=== PATIENT | female | born 1940 | race Caucasian/White ===

== ENCOUNTER 2016-05-31 13:41 | Outpatient (RCR) | payer MEDICAID, MEDICARE, OTHER ==
--- OUTSIDE RECORDS SUMMARY | 2016-04-25 12:58 | XMS REPORT | Continuity of Care Document ---
Author Author [facility] Organization [facility] Address Unknown Phone Unavailable Care Team Providers Care Baker Apprentice Name Role Phone MAXIMO HARDIN DO PCP Insurance Providers Payer Name Policy Number Subscriber Name Relationship s Medicare [id number] Solis Gonzalez 19 Self / Same As Patient [facility] [id number] Solis Gonzalez 19 Self / Same As Patient Advance Directives Directive Response Recorded Date/Time Advance Directives Yes 10/16/15 9:10pm Health Care Power of Getter Operator No 10/16/15 9:10pm Organ Donor Yes 10/16/15 9:10pm Problems Active Problems Medical Problem Onset Date Status Acute renal failure Unknown Acute Anemia Unknown Acute Anemia Unknown Acute Atrial fibrillation with rapid ventricular response Unknown Acute Atrial fibrillation with rapid ventricular response Unknown Acute CKD (chronic kidney disease) 08/18/2014 Acute Chest pain Unknown Acute Chronic renal failure Unknown Acute DKA (diabetic ketoacidoses) Unknown Acute Dyspnea Unknown Acute Dyspnea Unknown Acute Electrolyte imbalance Unknown Acute Epigastric pain Unknown Acute Hyperkalemia Unknown Acute Hypertensive urgency Unknown Acute Hypoglycemia Unknown Acute Hyponatremia Unknown Acute LLL pneumonia Unknown Acute LLL pneumonia Unknown Acute Left lower lobe pneumonia Unknown Acute Pleuritic chest pain Unknown Acute Systolic hypertension Unknown Acute Transient ischemic attack Unknown Acute UTI (urinary tract infection) Unknown Acute UTI (urinary tract infection) Unknown Acute Upper respiratory infection Unknown Acute Upper respiratory infection Unknown Acute Urinary tract infection Unknown Acute Urinary tract infection Unknown Acute Warfarin anticoagulation 08/18/2014 Acute Medications Current Home Medications Medication Dose Units Route Directions Days/Qty Instructions Start Date Glucagon,Human Recombinant 1 Mg/Kit 1 Mg Injection As Directed as needed for Hypoglycemia 06/15/11 Nitroglycerin 0.4 Mg 0.4 Mg Sublingual As Directed as needed for Chest Pain TAKE 1 TABLET EVERY 5 MINUTES X 3 DOSES NEEDED FOR CHEST PAIN 08/16 Ergocalciferol 50,000 Units 50,000 Units Oral Weekly On Wednesdays08/16/14 Docusate Sodium 100 Mg 100 Mg Oral Daily as needed for Constipation 07/13/15 Carvedilol 3.125 Mg 3.125 Mg Oral Twice A Day 10/13/15 Pravastatin Sodium 20 Mg 20 Mg Oral Bedtime 10/13/15 Latanoprost 2.5 Ml 1 Drop Each Eye Bedtime 10/13/15 Potassium Chloride 10 Meq 10 Meq Oral Daily FILLED #19 4-1-16 HAS NOT STARTED (HAS NOT PICKED UP FROM PHARMACY) 10/17/15 Lisinopril 40 Mg 40 Mg Oral Daily 10/17/15 Calcitriol 0.25 Mcg 0.25 Mcg Oral Twice A Day 10/17/15 Cyanocobalamin 1,000 Mcg/Ml 1,000 Mcg Injection Monthly 10/17/15 Buspirone Hcl 5 Mg 5 Mg Oral Bedtime 10/17/15 Levothyroxine Sodium 150 Mcg 150 Mcg Oral Daily 10/17/15 Amlodipine Besylate 10 Mg 10 Mg Oral Daily 10/17/15 Tramadol Hcl 50 Mg 50 Mg Oral Every 8HRS as needed for Pain 10/17/15 Isosorbide Mononitrate (Imdur) 30 Mg 30 Mg Oral Daily 10/17/15 Tizanidine Hcl 4 Mg 4-8 Mg Oral Three Times A Day as needed for Muscle Spasms TAKES 1-2 (4MG) TABLETS 10/17/15 Clopidogrel Bisulfate 75 Mg 75 Mg Oral Daily 10/17/15 Citalopram Hydrobromide 20 Mg 20 Mg Oral Bedtime 10/17/15 Furosemide 40 Mg 40 Mg Oral Daily 10/17/15 Pantoprazole Sodium 40 Mg 40 Mg Oral Bedtime 10/17/15 Insulin Aspart 100 Unit/1 Ml Per Insulin Pump 10/17/15 Clobetasol Propionate 15 Gm Topically Twice A Day 10/17/15 Warfarin Sodium 5 Mg 5 Mg Oral Every Evening 10/17/15 Sodium Bicarbonate 650 Mg 650 Mg Oral Three Times A Day 10/17/15 Cephalexin 250 Mg 250 Mg Oral Four Times Daily 30 10/18/15 Past Home Medications Medication Directions Ordered Status Citalopram Hydrobromide 20 Mg Tablet, 20 Mg Oral Bedtime 06/15/11 Discontinued Naproxen 500 Mg Tablet, 1 Each Oral Daily 06/15/11 Discontinued Warfarin Sodium 2 Mg Tablet, 2 Each Oral Every Saturday, Saturday, , And Saturday06/15/11 Discontinued Warfarin Sodium 5 Mg Tablet, 5 Mg Oral Bedtime 06/15/11 Discontinued Levothyroxine Sodium (Levothroid) 150 Mcg Tablet, 1 Each Oral Daily 06/15/11 Discontinued Potassium Chloride 10 Meq Tablet.sa, 3 Each Oral As Needed 06/15/11 Discontinued Furosemide (Lasix) 20 Mg Tablet, 1 Each Oral As Needed 06/15/11 Discontinued Lisinopril 10 Mg Tablet, 10 Mg Oral Daily 06/15/11 Discontinued Metoclopramide Hcl 5 Mg Tab, 1 Each Oral Twice A Day 06/15/11 Discontinued Buspirone Hcl 5 Mg Tablet, 1 Tab Oral Bedtime 06/15/11 Discontinued [Insulin Pump] , 06/15/11 Discontinued Levothyroxine Sodium 200 Mcg Tablet, 150 Mcg Oral Daily 07/19/12 Discontinued Lisinopril 20 Mg Tablet, 20 Mg Oral Daily 07/19/12 Discontinued Metoclopramide Hcl 10 Mg Tab, 10 Mg Oral Before Meals as needed for Stomach Upset 07/19/12 Discontinued Buspirone Hcl 10 Mg Tablet, 5 Mg Oral Bedtime 07/19/12 Discontinued Aspirin 81 Mg Tabec, 81 Mg Oral Daily 07/20/12 Discontinued Enoxaparin Sodium 30 Mg/0.3 Ml Soln, 30 Mg Daily @6 Pm 07/20/12 Discontinued Citalopram Hydrobromide 20 Mg Tablet, 1 Each Oral Bedtime 11/28/12 Discontinued Isosorbide Mononitrate 30 Mg Tablet, 30 Mg Oral Daily 11/28/12 Discontinued [B12 Inj 1000 Mcg/Ml] , 1000 Mcg Injection As Directed 11/29/12 Discontinued Clopidogrel Bisulfate 75 Mg Tablet, 75 Mg Oral Daily 11/29/12 Discontinued Tramadol Hcl 50 Mg Tablet, 50 Mg Oral Every 8HRS as needed for Pain 11/29/12 Discontinued [Iron Infusion Series] , Intraven 11/29/12 Discontinued Ferrous Sulfate 325 Mg Tab, 325 Mg Oral Twice A Day 11/29/12 Discontinued Nitroglycerin 0.4 Mg Tab, 0.4 Mg Sublingual As Needed as needed 12/02/12 Discontinued Metoprolol Succinate (Metoprolol Er 25MG) 25 Mg Tab, 25 Mg Oral Bedtime 12/02 Discontinued Pantoprazole Sod 40 Mg Tab, 40 Mg Oral Daily@0700 12/02/12 Discontinued Buspirone Hcl 5 Mg Tablet, 5 Mg Oral Bedtime 12/02/12 Discontinued Citalopram Hydrobromide 20 Mg Tablet, 20 Mg Oral Bedtime 12/02/12 Discontinued Ferrous Sulfate 325 Mg Tab, 325 Mg Oral Twice A Day With Meals 12/02/12 Discontinued Isosorbide Mononitrate 30 Mg Tab, 30 Mg Oral Daily@0630 12/02/12 Discontinued Lisinopril 20 Mg Tab, 20 Mg Oral Daily@0900 12/02/12 Discontinued Metoclopramide Hcl 10 Mg Tab, 10 Mg Oral Before Meals 12/02/12 Discontinued Tramadol Hcl 50 Mg Tab, 50 Mg Oral Every 8HRS as needed 12/02/12 Discontinued Warfarin Sodium 5 Mg Tablet, 5 Mg Oral Daily@1800 12/02/12 Discontinued Amlodipine Besylate 5 Mg Tablet, 10 Mg Oral Daily 12/02/12 Discontinued Clopidogrel Bisulfate 75 Mg Tablet, 75 Mg Oral Daily 12/02/12 Discontinued Aspirin 81 Mg Tabec, 81 Mg Oral Daily 12/02/12 Discontinued Potassium Chloride 20 Meq Tab, 20 Meq Oral Daily@0700 12/02/12 Discontinued Nitroglycerin 1 In Oint, 1 Inch Topically Give Every 6 Hr On Schedule Discontinued Levothyroxine Sodium 125 Mcg Tablet, 1 Each Oral Daily 12/02/12 Discontinued Potassium Chloride (Micro K) 10 Meq Capsule.sa, 10 Meq Oral Daily 03/09/13 Discontinued [Vitamin D] , 03/09/13 Discontinued [Bicarb] , 05/29/13 Discontinued Ergocalciferol 50,000 Unit Capsule, 08/14/14 Discontinued Levothyroxine Sodium 150 Mcg Tablet, 150 Mcg Oral Daily 08/15/14 Discontinued Warfarin Sodium 6 Mg Tablet, 1 Each Oral T-Thur-Sat 08/15/14 Discontinued Warfarin Sodium 5 Mg Tablet, 5 Mg Oral Every Evening 08/15/14 Discontinued [Bicarb] , 1 Tab Oral Three Times A Day 08/15/14 Discontinued Insulin Lispro 100 Unit/1 Ml Vial, Sub-Q Per Insulin Pump 08/16/14 Discontinued Buspirone Hcl 5 Mg Tab, 5 Mg Oral Bedtime 08/16/14 Discontinued Cyanocobalamin (Vitamin B 12 Injecting) 1,000 Mcg/Ml Vial, 1000 Mcg Injection Monthly 08/16/14 Discontinued Amlodipine Besylate 10 Mg Tablet, 10 Mg Oral Daily 08/16/14 Discontinued Warfarin Sodium 1 Mg Tablet, 1 Mg Oral Tues, Thurs, Sat 08/16/14 Discontinued Furosemide (Lasix) 20 Mg Tablet, 20 Mg Oral Daily 08/16/14 Discontinued Sodium Bicarbonate 650 Mg Tablet, 650 Mg Oral Three Times A Day 08/16/14 Discontinued Tizanidine Hcl 4 Mg Tablet, 8 Mg Oral Three Times A Day 08/16/14 Discontinued Clopidogrel Bisulfate 75 Mg Tab, 75 Mg Oral Daily 08/18/14 Discontinued Cephalexin Monohydrate (Keflex) 500 Mg Capsule, 1 Each Oral Twice A Day 08/19 Discontinued Clopidogrel Bisulfate 75 Mg Tablet, 75 Mg Oral Daily 08/26/14 Discontinued Cephalexin Monohydrate (Keflex) 500 Mg Capsule, 500 Mg Oral Twice A Day 08/26 Discontinued Cyanocobalamin (Vitamin B 12 Injecting) 1,000 Mcg/Ml Vial, 500 Mcg Injection Monthly 08/26/14 Discontinued Calcitriol 0.25 Mcg Capsule, 0.25 Mcg Oral Twice A Day 08/26/14 Discontinued Levofloxacin 250 Mg Tab, 1 Each Oral Daily 08/30/14 Discontinued Cephalexin Monohydrate (Keflex) 500 Mg Capsule, 1 Each Oral Three Times A Day 09/19/14 Discontinued Azelastine Hcl 205.5 Mcg/0.137 Ml [place].pump, 2 Spr Nasal Twice A Day Discontinued Lisinopril 40 Mg Tablet, 40 Mg Oral Daily 11/19/14 Discontinued Cefuroxime Axetil (Ceftin) 500 Mg Tablet, 1 Each Oral Twice A Day 11/22/14 Discontinued [Diltiazem Hcl] 240 Mg Cap, 240 Mg Oral Daily 12/22/14 Discontinued Warfarin Sodium 10 Mg Tablet, 10 Mg Oral Daily 03/29/15 Discontinued Diltiazem Hcl 240 Mg Cap.er.24h, 240 Mg Oral Daily 07/12/15 Discontinued Isosorbide Mononitrate (Imdur) 30 Mg Tab.er.24h, 30 Mg Oral Daily@0700 Discontinued Carvedilol 3.125 Mg Tablet, 3.125 Mg Oral Twice A Day 07/14/15 Discontinued Ciprofloxacin Hcl 250 Mg Tablet, 250 Mg Oral Twice A Day 07/14/15 Discontinued Doxycycline Hyclate 100 Mg Tablet, 100 Mg Oral Twice A Day 08/29/15 Discontinued [Sodium Bicarbonate] , 10 Gr Oral Three Times A Day 10/13/15 Discontinued Social History Social History Problem Response Recorded Date/Time Alcohol Use Denies Use 10/16/2015 9:10pm Recreational Drug Use No 10/16/2015 9:10pm Recent Foreign Travel No 05/29/2013 2:33pm Recent Infectious Disease Exposure No 05/29/2013 2:33pm Sexually Transmitted Disease No 10/16/2015 9:10pm HIV/AIDS No 10/16/2015 9:10pm Do you dip or chew tobacco? No 10/16/2015 9:10pm Hospital Discharge Instructions Current inpatient/outpatient. Discharge instructions are currently unavailable. Plan of Care Prescriptions Functional Status No functional status results. Allergies, Adverse Reactions, Alerts No known allergies. Immunizations Name Given Type Date of Pneumonia Vaccine 08/17/14 Historical Date of Influenza Vaccine 03/29/15 Historical Hepatitis A Yes Historical Hepatitis B Yes Historical Tetanus Booster (TDap) Less than 5yrs Historical Vital Signs No known vital signs results. Results Laboratory Results Test Name Result Units Flags Reference Collection Date/Time Result Date/ Time Comments White Blood Count 8.1 10^3/uL 4.3-11.0 10/10/2015 3:35pm 10/10/2015 3: 40pm Red Blood Count 3.44 10^6/uL L 4.35-5.85 10/10/2015 3:35pm 10/10/2015 3: 40pm Hemoglobin 10.4 G/DL L 11.5-16.0 10/10/2015 3:35pm 10/10/2015 3:40pm Hematocrit 31 % L 35-52 10/10/2015 3:35pm 10/10/2015 3:40pm Mean Corpuscular Volume 90 FL 80-99 10/10/2015 3:35pm 10/10/2015 3: 40pm Mean Corpuscular Hemoglobin 30 PG 25-34 10/10/2015 3:35pm 10/10/2015 3: 40pm Mean Corpuscular Hemoglobin Concent 34 G/DL 32-36 10/10/2015 3:35pm 3:40pm Red Cell Distribution Width 12.8 % 10.0-14.5 10/10/2015 3:35pm 2015 3:40pm Platelet Count 190 10^3/uL 130-400 10/10/2015 3:35pm 10/10/2015 3:40pm Mean Platelet Volume 10.2 FL 7.4-10.4 10/10/2015 3:35pm 10/10/2015 3: 40pm Neutrophils (%) (Auto) 74 % 42-75 10/10/2015 3:35pm 10/10/2015 3:40pm Lymphocytes (%) (Auto) 17 % 12-44 10/10/2015 3:35pm 10/10/2015 3:40pm Monocytes (%) (Auto) 6 % 0-12 10/10/2015 3:35pm 10/10/2015 3:40pm Eosinophils (%) (Auto) 3 % 0-10 10/10/2015 3:35pm 10/10/2015 3:40pm Basophils (%) (Auto) 0 % 0-10 10/10/2015 3:35pm 10/10/2015 3:40pm Neutrophils # (Auto) 6.0 X 10^3 1.8-7.8 10/10/2015 3:35pm 10/10/2015 3: 40pm Lymphocytes # (Auto) 1.4 X 10^3 1.0-4.0 10/10/2015 3:35pm 10/10/2015 3: 40pm Monocytes # (Auto) 0.5 X 10^3 0.0-1.0 10/10/2015 3:35pm 10/10/2015 3: 40pm Eosinophils # (Auto) 0.2 10^3/uL 0.0-0.3 10/10/2015 3:35pm 10/10/2015 3 :40pm Basophils # (Auto) 0.0 10^3/uL 0.0-0.1 10/10/2015 3:35pm 10/10/2015 3: 40pm Prothrombin Time 16.7 SEC H 12.2-14.7 11/08/2015 2:20pm 11/08/2015 3: 17pm INR Comment 1.4 0.8-1.4 11/08/2015 2:20pm 11/08/2015 3:17pm INTERPRETIVE DATA SUGGESTED THERAPEUTIC RANGE FOR INR'S: VENOUS THROMBOSIS, PULMONARY EMBOLISM, OR PREVENTION OF SYSTEMIC EMBOLISM (EG. IN ATRIAL FIBRILLATION): 2.0 - 3.0 MECHANICAL PROSTHETIC HEART VALVES: 2.5 - 3.5* *NOTE: INR'S UP TO 4.5 MAY BE NECESSARY IN SELECTED GROUPS OF HIGH RISK PATIENTS. [employer] CONSENSUS CONFERENCE ON ANTITHROMBOTIC THERAPY (2000). Pending Laboratory Results Test Name Collection Date/Time Pending Microbiology Results Procedure Source Collection Date/Time Procedures No known history of procedures. Encounters Encounter Location Arrival/Admit Date Discharge/Depart Date Attending Provider Registered Recurring [facility] 11/15/15 2:07pm CAMERON ROBLERO MD Discharged Recurring [facility] 11/08/15 1:59pm 11:59pm MAXIMO HARDIN DO
[2016-04-25 13:48] LABS: MEAN PLATELET VOLUME 10.3 FL (7.4-10.4); RED BLOOD COUNT 3.14 10^6/uL (4.35-5.85); RED CELL DISTRIBUTION WIDTH 14.8 % (10.0-14.5); WHITE BLOOD COUNT 6.4 10^3/uL (4.3-11.0)
[2016-04-25] MEDS: DARBEPOETIN 100 MCG/ML (ARANESP) 1 ML VIAL SC SCH (14:35)
[2016-04-25] MEDS: DARBEPOETIN 25 MCG/ML (ARANESP) 1 ML HOSPITAL SC SCH (14:35)
[2016-04-25 14:45] VITALS: BP 119/85
[2016-05-09 12:57] LABS: MEAN PLATELET VOLUME 11.7 FL (7.4-10.4); RED BLOOD COUNT 3.1 10^6/uL (4.35-5.85); RED CELL DISTRIBUTION WIDTH 14.7 % (10.0-14.5); WHITE BLOOD COUNT 4.9 10^3/uL (4.3-11.0)
[2016-05-09 13:20] VITALS: BP 140/42
[~2016-05-31] VITALS: Ht 172.7 cm; Wt 127.7 kg
[~2016-05-31 13:41] MED LIST: AML5T PO; AMLO10TA PO; AMLO10TA2 PO; ARANESP SQ SCH; ASP81TEC PO; ASPI-586 PO; AZEL205. NS; BICARB; BICARB PO; BSP10T PO; BSP5T PO; BUSP5TAB59 PO; CALC0.253 PO; CARV25TA PO; CARV3.122 PO; CEFU500T5 PO; CEPH-506 PO; CEPH500C PO; CIPR-226 PO; CITA20TA7 PO; CLOB15OI2 TOP; CLON0.1T PO; CLOP75TA PO; CLOP75TA28 PO; CLPD75T PO; CNC1KV INJ; CTLP20T PO; CYAN100053 IJ; CYANOCOBALAMIN 1000 MCG/ML IJ; D50KC PO; DARBEPOETIN 60 MCG/ML SQ SCH; DILT240C53 PO; DOCU-163 PO; DOCU100C37 PO; DOXY100T2 PO; Diltiazem Hcl PO; ENXP30I.3; ERGO500028; FERR-65 PO; FRS325T PO; FURO20TA4 PO; FURO40TA4 PO; GLUC1KIT4 IM; HYDR-3923 PO; INSU100V SQ; INSU100V16; INSU100V16 SC; INSU100V5 SQ; INSULIN PUMP; ISM30TCR PO; ISOS30TA3 PO; KCL20TCR PO; LATA2.5D5 OU; LEVO125T PO; LEVO150T6 PO; LEVO200T30 PO; LEVO250T7 PO; LEVO500T80 PO; LISI10TA PO; LISI20TA PO; LISI40TA PO; LSNP20T PO; LVT.15T PO; METO-310 PO; METO-354 PO; METO5TAB79 PO; MTC10T PO; MTP25TSR PO; NAPR-243 PO; NITR0.4T SL; NTR.4SL SL; OMEP20CA12 PO; OMEP20TA7 PO; PANT40TA3 PO; PNT40TEC PO; POTA10CA43 PO; POTA10TA86 PO; PRAV20TA3 PO; SODI650T PO; SODI650T8 PO; TIZA4TAB3 PO; TIZA4TAB55 PO; TRAM-21 PO; TRAM50TA2 PO; Vitamin D; WARF-48 PO; WARF10TA PO; WARF1TAB6 PO; WARF2.5T PO; WARF5TAB PO; WARF5TAB8 PO; WARF6TAB PO; WRF2T PO; WRF3T PO; WRF5T PO; [UNRECOGNIZED DRUG - CODE] TOP; [UNRECOGNIZED DRUG - REMARK] IV; sodium bicarbonate PO
[2016-05-31 14:07] LABS: MEAN PLATELET VOLUME 10.6 FL (7.4-10.4); RED BLOOD COUNT 3.03 10^6/uL (4.35-5.85); RED CELL DISTRIBUTION WIDTH 14.8 % (10.0-14.5); WHITE BLOOD COUNT 6.7 10^3/uL (4.3-11.0)
[2016-05-31 14:13] VITALS: BP 96/56
[2016-05-31] MEDS: DARBEPOETIN 100 MCG/ML (ARANESP) 1 ML VIAL SC SCH (14:30)
[2016-05-31] MEDS: DARBEPOETIN 25 MCG/ML (ARANESP) 1 ML HOSPITAL SC SCH (14:30)
== END 2016-07-24 | disposition home or self-care (01) ==
LOC: SDC 13:41
PROVIDERS: ATTEND Internal Medicine
DX: N18.4 Chronic kidney disease, stage 4 (severe) (principal); D63.1 Anemia in chronic kidney disease
CPT/HCPCS: 36415; 36591; 85027; 96372